=== PATIENT | female | born 1985 | race Caucasian/White ===

== ENCOUNTER 2017-03-19 13:36 | Emergency (ER) | payer MEDICAID ==
[~2017-03-19 13:36] MED LIST: ADIPEX-P37.5 M; ADIPEX-P37.5 MG PO; FLEXERIL10 MG PO; MOTRIN600 MG PO; NO HOME MEDICATION XX; NORCO 5/325 TAB1 TAB PO; NORCO 7.5/325 T1 TAB PO; PRENATAL1 EACH PO; SOMA350 MG PO; ULTRAM50 MG PO; ZANTAC15 PO
== END 2017-03-19 16:26 ==
LOC: EDMED 13:36
DX: S10.93XA Contusion of unspecified part of neck, initial encounter (principal); S40.022A Contusion of left upper arm, initial encounter; X58.XXXA Exposure to other specified factors, initial encounter
CPT/HCPCS: J7030; Q9967